=== PATIENT | female | born 1955 | race African-American/Black ===

== ENCOUNTER 2016-05-31 08:26 | Outpatient (CLI) | payer OTHER ==
[~2016-05-31 08:26] MED LIST: GLIM2TAB PO; GLUCOPHAGE1000 MG PO; METF100038 OR; MOBIC7.5 M1 PO; PRAV40TA PO; PRAVACHOL80 MG PO
[2016-05-31 09:33] LABS: PLATELET COUNT 333 K/uL (152-353)
[2016-05-31 10:56] LABS: POTASSIUM 4.5 mmol/L (3.6-5.2); SODIUM 136 mmol/L (136-145)
== END 2016-05-31 19:43 | disposition home or self-care (01) ==
LOC: LABW 08:26
PROVIDERS: Family Medicine
DX: M25.511 Pain in right shoulder (principal); M54.2 Cervicalgia; E11.9 Type 2 diabetes mellitus without complications; E78.4 Other hyperlipidemia; R82.99 Other abnormal findings in urine; E55.9 Vitamin D deficiency, unspecified
CPT/HCPCS: 36415; 80053; 80061; 81000; 82043; 82306; 82570; 83036; 83735; 84439; 84443; 85027; 87077; 87086; 87088; 87186

== ENCOUNTER 2016-09-01 11:23 | Outpatient (CLI) | payer OTHER | END 2016-09-01 12:30 | disposition home or self-care (01) | LOC: LABW 11:23 | DX: M54.5 Low back pain (principal); M19.90 Unspecified osteoarthritis, unspecified site; M54.10 Radiculopathy, site unspecified | CPT/HCPCS: 36415; 86200; 86430 ==

== ENCOUNTER 2016-12-01 11:39 | Outpatient (CLI) | payer OTHER | END 2016-12-01 19:58 | disposition home or self-care (01) | LOC: RAD 11:39 | DX: M06.4 Inflammatory polyarthropathy (principal) ==

== ENCOUNTER 2017-01-26 08:16 | Outpatient (CLI) | payer OTHER | END 2017-01-26 10:00 | disposition home or self-care (01) | LOC: MAMMO 08:16 | DX: Z12.31 Encounter for screening mammogram for malignant neoplasm of breast (principal) ==

== ENCOUNTER 2017-03-17 13:14 | Outpatient (CLI) | payer OTHER | END 2017-03-17 19:25 | disposition home or self-care (01) | LOC: LAB 13:14 | DX: N39.0 Urinary tract infection, site not specified (principal) | CPT/HCPCS: 81000; 87077; 87086; 87088; 87186 ==

== ENCOUNTER 2017-03-31 07:33 | Outpatient (CLI) | payer OTHER ==
[2017-03-31 08:04] LABS: POTASSIUM 4.5 mmol/L (3.6-5.2); SODIUM 137 mmol/L (136-145)
[2017-03-31 08:49] LABS: PLATELET COUNT 305 K/uL (152-353)
== END 2017-03-31 08:35 | disposition home or self-care (01) ==
LOC: LABW 07:33
PROVIDERS: Family Medicine
DX: E11.9 Type 2 diabetes mellitus without complications (principal); I10 Essential (primary) hypertension; E66.8 Other obesity; R82.99 Other abnormal findings in urine; E55.9 Vitamin D deficiency, unspecified
CPT/HCPCS: 36415; 80053; 80061; 81000; 82043; 82306; 82570; 83036; 83735; 84439; 84443; 84550; 85027; 87077; 87086; 87088; 87186

== ENCOUNTER 2017-11-10 09:23 | Observation (INO) | payer OTHER ==
[~2017-11-10] VITALS: Ht 157.5 cm; Wt 80.0 kg
[2017-11-10 12:00] VITALS: BP 102/47; TEMP 97.7
[2017-11-10 12:27] VITALS: BP 137/65; TEMP 97.9; Ht 157.5 cm; Wt 80.0 kg
[2017-11-10 12:59] LABS: PLATELET COUNT 332 K/uL (152-353)
[2017-11-10 16:00] VITALS: BP 150/63; TEMP 97.8
[2017-11-10 20:00] VITALS: BP 105/55; TEMP 98.2
[2017-11-11] VITALS: BP 108/53; TEMP 98.9
[2017-11-11 04:00] VITALS: BP 110/59; TEMP 97.9
[2017-11-11 07:42] VITALS: BP 96/51; TEMP 98.3
[2017-11-11 12:20] VITALS: BP 114/58; TEMP 97.5
== END 2017-11-11 18:00 | disposition home or self-care (01) ==
LOC: MED/SURG 09:23
PROVIDERS: ADMIT Family Medicine
DX: T39.395A Adverse effect of other nonsteroidal anti-inflammatory drugs [NSAID], initial encounter (principal); Y92.89 Other specified places as the place of occurrence of the external cause; E11.65 Type 2 diabetes mellitus with hyperglycemia; I10 Essential (primary) hypertension; M06.89 Other specified rheumatoid arthritis, multiple sites; E78.4 Other hyperlipidemia; J02.9 Acute pharyngitis, unspecified; H66.91 Otitis media, unspecified, right ear; H60.8X1 Other otitis externa, right ear; D72.829 Elevated white blood cell count, unspecified
CPT/HCPCS: 36415; 82948; 85027; 96366; 96372; 96374; 96375; 99220; G0378; G0379; J0696; J1200; J1815; J2930

== ENCOUNTER 2019-05-05 18:15 | Emergency (ER) | payer OTHER ==
[~2019-05-05] VITALS: Ht 157.5 cm; Wt 79.8 kg
[2019-05-05 19:30] VITALS: BP 117/52; TEMP 98.1
== END 2019-05-05 19:30 | disposition home or self-care (01) ==
LOC: ED 18:15
DX: J06.9 Acute upper respiratory infection, unspecified (principal)
CPT/HCPCS: 87502; 87651; 99283

== ENCOUNTER 2020-06-20 10:11 | Outpatient (CLI) | payer OTHER | END 2020-06-20 19:06 | disposition home or self-care (01) | LOC: LABW 10:11 | PROVIDERS: ATTEND Family Medicine | DX: E11.65 Type 2 diabetes mellitus with hyperglycemia (principal) | CPT/HCPCS: 82043 ==

== ENCOUNTER 2020-06-30 14:47 | Outpatient (CLI) | payer OTHER | END 2020-06-30 20:17 | disposition home or self-care (01) | LOC: INF 14:47 | PROVIDERS: ATTEND Internal Medicine | DX: Z23 Encounter for immunization (principal) | CPT/HCPCS: 96372 ==

== ENCOUNTER 2020-07-28 09:18 | Outpatient (CLI) | payer OTHER | END 2020-07-28 20:04 | disposition home or self-care (01) | LOC: INF 09:18 | PROVIDERS: ATTEND Internal Medicine | DX: Z23 Encounter for immunization (principal) | CPT/HCPCS: 96372 ==

== ENCOUNTER 2021-04-19 08:55 | Outpatient (CLI) | payer OTHER | END 2021-04-19 18:58 | disposition home or self-care (01) | LOC: RAD 08:55 | PROVIDERS: ATTEND Family Medicine | DX: Z13.820 Encounter for screening for osteoporosis (principal); Z78.0 Asymptomatic menopausal state ==

== ENCOUNTER 2021-06-22 10:16 | Outpatient (CLI) | payer OTHER | END 2021-06-22 18:55 | disposition home or self-care (01) | LOC: RAD 10:16 | PROVIDERS: ATTEND Family Medicine | DX: M25.511 Pain in right shoulder (principal) ==

== ENCOUNTER 2022-05-25 09:17 | Outpatient (CLI) | payer OTHER | END 2022-05-25 19:51 | disposition home or self-care (01) | LOC: MAMMO 09:17 | PROVIDERS: ATTEND Family Medicine | DX: Z00.00 Encounter for general adult medical examination without abnormal findings (principal); Z12.31 Encounter for screening mammogram for malignant neoplasm of breast ==

== ENCOUNTER 2022-12-07 11:41 | Outpatient (CLI) | payer OTHER | END 2022-12-07 19:48 | disposition home or self-care (01) | LOC: RAD 11:41 | PROVIDERS: ATTEND Family Medicine | DX: M54.89 Other dorsalgia (principal); M25.511 Pain in right shoulder ==